=== PATIENT | male | born 1980 | race Caucasian/White ===

== ENCOUNTER 2022-02-16 12:58 | Emergency (ER) | payer OTHER | END 2022-02-16 13:25 | disposition left against medical advice (07) | LOC: FER 12:58 | DX: F11.129 Opioid abuse with intoxication, unspecified (principal); Z88.6 Allergy status to analgesic agent; Z53.29 Procedure and treatment not carried out because of patient's decision for other reasons | CPT/HCPCS: 99283 ==

== ENCOUNTER 2022-04-14 09:24 | Emergency (ER) | payer OTHER | END 2022-04-14 10:26 | disposition home or self-care (01) | LOC: FER 09:24 | DX: Z02.89 Encounter for other administrative examinations (principal); J45.909 Unspecified asthma, uncomplicated; F20.0 Paranoid schizophrenia; F17.200 Nicotine dependence, unspecified, uncomplicated; Z88.6 Allergy status to analgesic agent | CPT/HCPCS: 99284 ==